=== PATIENT | female | born 1995 | race Two or more races ===

== ENCOUNTER 2023-07-30 09:15 | Emergency (ER) | payer MEDICAID ==
[~2023-07-30] VITALS: Ht 162.6 cm; Wt 113.0 kg
[2023-07-30 09:55] LABS: Basophils # (auto) 0 10 ^3/uL (0-0.2); Basophils % (auto) 0.3 % (0.0-2.0); Eosinophils # (auto) 0.2 10 ^3/uL (0-0.8); Hematocrit 41.8 % (36.0-46.0); Hemoglobin 13.8 g/dL (12.2-16.2); Lymphocytes # (auto) 3.3 10 ^3/uL (0.4-5.4); Lymphocytes % (auto) 30.7 % (10.0-50.0); Mean Corpuscular Hemoglobin 27.4 pg (28.0-32.0); Monocytes # (auto) 0.6 10 ^3/uL (0-1.3); Monocytes % (auto) 5.4 % (0.0-12.0); Neutrophils # (auto) 6.6 10 ^3/uL (1.6-8.6); Neutrophils % (auto) 61.6 % (37.0-80.0); Nucleated Red Blood Cells % 0.1 %; Red Blood Cells 5.04 10^6/uL (4.0-5.20); Red Cell Distribution Width 15.2 % (11.8-14.3); White Blood Cell 10.8 10^3/uL (4.4-10.8)
[2023-07-30 10:17] LABS: Alanine Aminotransferase 40 U/L (7-40); Albumin 4.5 g/dL (3.2-4.8); Alkaline Phosphatase 80 U/L (46-116); Anion Gap 10 (5-15); Aspartate Aminotransferase 21 U/L (13-40); BUN/Creatinine Ratio 8.1 (10.0-20.0); Blood Urea Nitrogen 5 mg/dL (9-23); Calcium 9.2 mg/dL (8.5-10.1); Carbon Dioxide 19 mmol/L (20-30); Chloride 110 mmol/L (98-107); Glucose 106 mg/dL (74-106); Potassium 3.6 mmol/L (3.5-5.1); Sodium 139 mmol/L (136-145)
[2023-07-30 10:18] LABS: Bilirubin, Total 0.3 mg/dL (0.2-1.0); Total Protein 7.6 g/dL (5.7-8.2)
[2023-07-30 10:30] VITALS: PULSE 84; RESP 20; O2SAT 96
[2023-07-30] MEDS ORDERED: LORazepam 2MG/ML-1ML VIAL ONE (10:34)
[2023-07-30] MEDS ORDERED: LORazepam 2MG/ML-1ML VIAL IV ONE (10:45)
[2023-07-30 14:00] VITALS: BP 108/70; PULSE 107; RESP 15; O2SAT 99
== END 2023-07-30 17:33 | disposition home or self-care (01) ==
LOC: EDBD 09:15 → ER 09:15
DX: G40.909 Epilepsy, unspecified, not intractable, without status epilepticus (principal); R10.2 Pelvic and perineal pain; R51.9 Headache, unspecified
CPT/HCPCS: 36415; 70450; 80053; 84702; 85025; 96374; 99285; J2060